=== PATIENT | male | born 1990 | race Caucasian/White ===

== ENCOUNTER 2021-01-19 22:34 | Emergency (ER) ==
[2021-01-20 00:50] LABS: HIV (1/2) Antibody/Antigen Non-Reactive (NonReactive); HIV 1/2 INDEX 0.14 S/CO (<1.00); Hep C IgG Ab Non-Reactive (NonReactive)
[2021-01-20 03:12] LABS: Hep B Surf AB Reactive (NonReactive)
== END 2021-01-19 23:49 | disposition home or self-care (01) ==
LOC: ERS 22:34
DX: Z77.21 Contact with and (suspected) exposure to potentially hazardous body fluids (principal)
CPT/HCPCS: 36415; 86706; 86803; 87389; 99283

== ENCOUNTER 2022-04-26 04:56 | Emergency (ER) | payer SELFPAY ==
[2022-04-26 05:40] LABS: #Basophils 0.1 thou/uL (0.0-0.2); #Eosinphils 0.3 thou/uL (0.0-0.7); #Lymphocytes 2.2 thou/uL (1.20-3.40); #Monocytes 0.7 thou/uL (0.11-0.59); #Neutrophils 3.6 thou/uL (1.40-6.50); %Basophils 1.4 % (0.0-1.0); %Lymphocytes 32.4 % (21.0-51.0); %Monocytes 10.2 % (0.0-10.0); Hemoglobin 15.6 g/dL (14.0-18.0); Mean Corpuscular HGB CONC 34.5 g/dL (32.0-36.0); Mean Corpuscular Hemoglobin 29.7 pg (27.0-31.0); Mean Platelet Volume 7.9 fL (7.4-10.4); Platelet Count 206 thou/uL (130-400); RBC Distribution Width 12.5 % (11.5-14.5); Red Blood Cell (RBC) Count 5.25 mill/uL (4.70-6.10); White Blood Cell (WBC) Count 6.8 thou/uL (4.8-10.8)
[2022-04-26 06:02] LABS: ALT (SGPT) 29 U/L (8-55); AST (SGOT) 25 U/L (5-34); Albumin 4.7 g/dL (3.5-5.0); Alkaline Phosphatase 59 U/L (40-110); Anion Gap 12 mmol/L (10-20); BUN (Urea Nitrogen) 15 mg/dL (8.9-20.6); Bilirubin, Total 0.7 mg/dL (0.2-1.2); Calc. Creatinine Clearance 0 mL/min (70-130); Calcium 9.1 mg/dL (7.8-10.44); Carbon Dioxide 24 mmol/L (22-29); Chloride 106 mmol/L (98-107); Estimated GFR 80; Globulin 2.5 g/dL (2.4-3.5); Glucose 117 mg/dL (70-105); Potassium 3.8 mmol/L (3.5-5.1); Protein, Total 7.2 g/dL (6.0-8.3); Sodium 138 mmol/L (136-145)
[2022-04-26] MEDS ORDERED: Ondansetron PF 4 MG/2 ML Vial ONE (06:02)
[2022-04-26 06:06] LABS: CK (CPK) 372 U/L (30-200); Lipase 15 U/L (8-78)
[2022-04-26 06:44] LABS: SARS-CoV-2 NAA Rapid Test Not Detected (NotDetected)
== END 2022-04-26 06:45 | disposition home or self-care (01) ==
LOC: ERS 04:56
DX: R55 Syncope and collapse (principal); F17.290 Nicotine dependence, other tobacco product, uncomplicated; Z20.822 Contact with and (suspected) exposure to COVID-19
CPT/HCPCS: 70450; 71045; 80053; 82550; 83690; 84146; 84443; 84484; 85025; 93005; 96361; 96374; J2405; U0002

== ENCOUNTER 2024-07-25 23:14 | Emergency (ER) | payer BC, SELFPAY ==
[2024-07-26 00:42] LABS: #Basophils 0.09 10x3/uL (0.0-0.2); %Basophils 1.1 % (0.0-1.0); %Eosinophils 2.7 % (0.0-10.0); %Lymphocytes 25.4 % (21.0-51.0); %Monocytes 10.7 % (0.0-10.0); %Neutrophils 59.9 % (42.0-75.0); Hematocrit 45.3 % (42.0-52.0); Hemoglobin 15.4 g/dL (14.0-18.0); Mean Corpuscular Hemoglobin 27.6 pg (27.0-31.0); Mean Corpuscular Volume 81.3 fL (78.0-98.0); Mean Platelet Volume 10.6 fL (7.4-10.4); Platelet Count 212 10x3/uL (130-400); RBC Distribution Width 12.4 % (11.5-14.5); Red Blood Cell (RBC) Count 5.57 mill/uL (4.70-6.10)
[2024-07-26 01:01] LABS: ALT (SGPT) 37 U/L (8-55); AST (SGOT) 15 U/L (5-34); Alkaline Phosphatase 94 U/L (40-110); Anion Gap 16 mmol/L (10-20); BUN (Urea Nitrogen) 14 mg/dL (8.9-20.6); Bilirubin, Total 0.4 mg/dL (0.2-1.2); Calc. Creatinine Clearance 0 mL/min (70-130); Calcium 8.7 mg/dL (7.8-10.44); Carbon Dioxide 20 mmol/L (22-29); Chloride 104 mmol/L (98-107); Estimated GFR 92; Globulin 2.9 g/dL (2.4-3.5); Glucose 263 mg/dL (70-105); Lipase 32 U/L (8-78); Potassium 3.7 mmol/L (3.5-5.1); Protein, Total 6.9 g/dL (6.0-8.3); Sodium 136 mmol/L (136-145)
[2024-07-26 01:09] LABS: Bacteria/HPF None Seen HPF (None Seen); Bilirubin Negative (Negative); Blood, Urine Negative (Negative); CAUTI Indications for Culture Pelvic or flank pain; Clarity Clear (Clear); Glucose, Urine (Dipstick) Greater than 1000 mg/dL (Negative); Ketone, Urine Trace mg/dL (Negative); Leukocyte Negative Leu/uL (Negative); Nitrite Negative (Negative); Protein, Urine (Dipstick) Negative (Neg-Trace); RBC/HPF 0-3 HPF (0-3); Specific Gravity, Urine 1.049 (1.002-1.036); Squamous Epithelial None Seen HPF (0-3); Urobilinogen Normal mg/dL (Less than 2); WBC/HPF None Seen HPF (0-3); pH, Urine 5.5 (5.0-9.0)
[2024-07-26 01:10] LABS: Urine Culture Reflex No No
[2024-07-26] MEDS ORDERED: Iopamidol-370 76% 500 ML MDV (1 ML CHARGE) ONE (14:49)
== END 2024-07-26 03:25 | disposition home or self-care (01) ==
LOC: ERS 23:14
DX: K59.00 Constipation, unspecified (principal); K62.5 Hemorrhage of anus and rectum; F17.210 Nicotine dependence, cigarettes, uncomplicated; E10.9 Type 1 diabetes mellitus without complications
CPT/HCPCS: 36415; 74177; 80053; 81001; 83690; 85025; Q9967

== ENCOUNTER 2025-05-21 20:45 | Emergency (ER) | payer BC, OTHER ==
[2025-05-21 21:46] LABS: #Basophils 0.07 10x3/uL (0.0-0.2); #Eosinophils 0.14 10x3/uL (0.0-0.7); #Monocytes 0.68 10x3/uL (0.11-0.59); #Neutrophils 4.10 10x3/uL (1.40-6.50); %Basophils 0.9 % (0.0-1.0); %Eosinophils 1.9 % (0.0-10.0); %Lymphocytes 33.2 % (21.0-51.0); %Monocytes 9.1 % (0.0-10.0); %Neutrophils 54.6 % (42.0-75.0); Hematocrit 42.5 % (42.0-52.0); Hemoglobin 14.5 g/dL (14.0-18.0); Mean Corpuscular Hemoglobin 27.6 pg (27.0-31.0); Mean Corpuscular Volume 81.0 fL (78.0-98.0); Platelet Count 216 10x3/uL (130-400); Red Blood Cell (RBC) Count 5.25 mill/uL (4.70-6.10); White Blood Cell (WBC) Count 7.50 10x3/uL (4.8-10.8)
[2025-05-21 21:49] LABS: Actual Bicarbonate (HCO3v) 24.1 mEq/L (22-28); Base Excess -1.1 mEq/L (-2.0 to +3.0); Calcium, Ionized (venous) 1.12 mmol/L (1.16-1.32); Chloride (VBG) 94 mmol/L (98-106); Hematocrit-VBG 46 % (42.0-52.0); Hemoglobin (Hb) 15.5 g/dL (13.2-17.3); Potassium (VBG) 4.26 mmol/L (3.70-5.30); Sodium 132 mmol/L (133-146)
[2025-05-21 22:19] LABS: ALT (SGPT) 20 U/L (Less than 45); AST (SGOT) 17 U/L (11-34); Albumin 4.3 g/dL (3.1-4.5); Alkaline Phosphatase 104 U/L (40-110); Anion Gap 17 mmol/L (10-20); BUN (Urea Nitrogen) 10 mg/dL (8.9-20.6); Bilirubin, Total 0.5 mg/dL (0.3-1.2); Calc. Creatinine Clearance 0 mL/min (70-130); Calcium 9.3 mg/dL (7.8-10.44); Carbon Dioxide 23 mmol/L (22-29); Chloride 94 mmol/L (98-107); Globulin 2.7 g/dL (2.4-3.5); Glucose 662 mg/dL (70-105); Lipase 31 U/L (8-78); Magnesium 2.1 mg/dL (1.6-2.6); Potassium 4.2 mmol/L (3.5-5.1); Sodium 130 mmol/L (136-145)
[2025-05-21 22:32] LABS: Bacteria/HPF None Seen HPF (None Seen); CAUTI Indications for Culture Dysuria,urgency,freq; Glucose, Urine (Dipstick) Greater than 1000 mg/dL (Negative); Leukocyte Negative Leu/uL (Negative); Protein, Urine (Dipstick) Negative (Neg-Trace); RBC/HPF None Seen HPF (0-3); Specific Gravity, Urine 1.038 (1.002-1.036); WBC/HPF 0-3 HPF (0-3)
[2025-05-21 22:34] LABS: Urine Culture Reflex No No
[2025-05-21 23:45] LABS: Osmolality, Serum 304 mOsm/kg (275-295)
== END 2025-05-22 02:52 | disposition home or self-care (01) ==
LOC: ERS 20:45
DX: E11.65 Type 2 diabetes mellitus with hyperglycemia (principal); E03.9 Hypothyroidism, unspecified; Z79.890 Hormone replacement therapy; Z87.891 Personal history of nicotine dependence
CPT/HCPCS: 36415; 36416; 80053; 81001; 82010; 82805; 83605; 83690; 83735; 83930; 84100; 85025; 93005; 94760; 96360; J1815